=== PATIENT | female | born 1945 | race Caucasian/White ===

== ENCOUNTER 2016-07-01 14:09 | Outpatient (CLI) | payer MEDICARE, OTHER | END 2016-07-01 14:10 | disposition home or self-care (01) | DX: R19.7 Diarrhea, unspecified (principal) ==

== ENCOUNTER 2016-07-02 10:48 | Outpatient (CLI) | payer MEDICARE, OTHER | END 2016-07-02 10:49 | disposition home or self-care (01) | DX: R19.7 Diarrhea, unspecified (principal) ==

== ENCOUNTER 2017-10-29 11:52 | Outpatient (CLI) | payer MEDICARE, OTHER ==
[~2017-10-29 11:52] MED LIST: GADOBUTROL 7.5 MMOL/7.5 ML SYRINGE ONE
[2017-10-29] MEDS ORDERED: GADOBUTROL 7.5 MMOL/7.5 ML SYRINGE IVP ONE (14:03)
--- NOTE | 2017-10-29 21:04 | MRI Report ---
EXAMINATION: MRI of the Brain and IAC without and with contrast. INDICATION: Asymmetric sensorineural hearing loss, right COMPARISON: None available. TECHNIQUE: Multiplanar, multiweighted images of the brain and IAC were obtained without and with cont rast administration. A total of 5mL of Gadavist gadolinium contrast was utilized. FINDINGS: The diffusion-weighted images are normal. There is no evidence of acute or subacute cerebral infarcti on. The pituitary and sella are normal. The corpus callosum is of normal size and configuration. The fixed wing aircraft flight mechanic niocervical junction is normal. The FLAIR images demonstrate multiple punctuate T2 hyperintensities within the subcortical, deep, and periventricular white matter. This is consistent with a mild degree of chronic small vessel ischemia . There is no significant generalized volume loss. The bilateral parotid spaces exhibit normal signal intensity. There are normal bony caps demonstrated over the bilateral superior semicircular canals. There is no evidence of dehiscence. There is normal enhancement within the brain parenchyma. There is normal enhancement within the deep venous sinuses. Impression: 1. There is no evidence of acute or subacute cerebral infarction. 2. There is mild degree of chronic small vessel ischemia. 3. There is a normal appearance of the course of the bilateral fifth, seventh, and eighth cranial ner ves. There is no cerebellopontine angle mass or internal auditory canal mass or evidence of superior semicircular canal dehiscence. Referring Provider Line: [phone] SITE ID: [id number]
--- NOTE | 2017-10-29 21:04 | MRI Report ---
EXAMINATION: MRI of the Brain and IAC without and with contrast. INDICATION: Asymmetric sensorineural hearing loss, right COMPARISON: None available. TECHNIQUE: Multiplanar, multiweighted images of the brain and IAC were obtained without and with cont rast administration. A total of 5mL of Gadavist gadolinium contrast was utilized. FINDINGS: The diffusion-weighted images are normal. There is no evidence of acute or subacute cerebral infarcti on. The pituitary and sella are normal. The corpus callosum is of normal size and configuration. The crate liner niocervical junction is normal. The FLAIR images demonstrate multiple punctuate T2 hyperintensities within the subcortical, deep, and periventricular white matter. This is consistent with a mild degree of chronic small vessel ischemia . There is no significant generalized volume loss. The bilateral parotid spaces exhibit normal signal intensity. There are normal bony caps demonstrated over the bilateral superior semicircular canals. There is no evidence of dehiscence. There is normal enhancement within the brain parenchyma. There is normal enhancement within the deep venous sinuses. Impression: 1. There is no evidence of acute or subacute cerebral infarction. 2. There is mild degree of chronic small vessel ischemia. 3. There is a normal appearance of the course of the bilateral fifth, seventh, and eighth cranial ner ves. There is no cerebellopontine angle mass or internal auditory canal mass or evidence of superior semicircular canal dehiscence. Referring Provider Line: [phone] SITE ID: [id number]
== END 2017-10-29 11:53 | disposition home or self-care (01) ==
LOC: LAB 11:52
PROVIDERS: ATTEND Otolaryngology
DX: I67.82 Cerebral ischemia (principal)
CPT/HCPCS: 36415; 70543; 70553; 82565; A9585